=== PATIENT | male | born 1965 | race Caucasian/White ===

== ENCOUNTER 2018-01-27 16:50 | Emergency (ER) | payer OTHER ==
[~2018-01-27] VITALS: Ht 180.3 cm; Wt 133.7 kg
[2018-01-27] MEDS ORDERED: ACETAMINOPHEN 325 MG TABLET ONE (17:21)
[2018-01-27] MEDS ORDERED: KETOROLAC 30 MG/1 ML ONE (17:21)
[2018-01-27] MEDS ORDERED: DIPHENHYDRAMINE 25 MG CAPSULE ONE (17:21)
[2018-01-27] MEDS ORDERED: KETOROLAC 30 MG/1 ML IM ONE (17:30)
[2018-01-27] MEDS ORDERED: DIPHENHYDRAMINE 25 MG CAPSULE PO ONE (17:30)
[2018-01-27] MEDS ORDERED: ACETAMINOPHEN 325 MG TABLET PO ONE (17:30)
[2018-01-27 18:26] VITALS: BP 136/64
== END 2018-01-27 18:28 | disposition home or self-care (01) ==
LOC: ED 18:25
DX: J01.90 Acute sinusitis, unspecified (principal); R51 Headache; I10 Essential (primary) hypertension; E11.9 Type 2 diabetes mellitus without complications
CPT/HCPCS: 71045; 96372; 99283; J1885; Q0163